=== PATIENT | female | born 1995 | race Caucasian/White ===

== ENCOUNTER 2017-05-09 10:40 | Emergency (ER) | payer OTHER ==
[~2017-05-09] VITALS: Ht 170.2 cm; Wt 62.0 kg
[2017-05-09 10:41] VITALS: BP 128/62; PULSE 82; RESP 16; TEMP 97.7; O2SAT 100
[2017-05-09] MEDS ORDERED: BACT800T5 PO (11:43)
[2017-05-09] MEDS ORDERED: IBUPROFEN 800 MG TAB PO ONE (11:45)
--- NOTE | 2017-05-09 11:45 | PD ---
HPI . Pilonidal cyst Chief Complaint: Lump, Cyst, Hernia Time Seen by Provider: 11:34 Travel History International Travel<30 days: No Contact w/Intl Traveler<30days: No Traveled to known affect area: No History of Present Illness HPI 21 year old female presents to the emergency department for evaluation of pilonidal cyst x 4 days. Patient has a history of pilonidal cysts. She denies any other history and doesn't take any daily medications. Patient denies any chest pain, shortness of breath, abdominal pain, nausea, vomiting, diarrhea, fever, chills or malaise. PFSH Past Medical History Medical History: Denies Significant Hx ?: Not LMP: 05/09/17 Past Surgical History Surgical History: No Previous Surgery Social History Alcohol Use: No Tobacco Use: No Substance Use: No Allergies-Medications (Allergen,Severity, Reaction): Coded Allergies: No Known Allergies (Unverified , 05/09/17) Reported Meds & Prescriptions Reported Meds & Active Scripts Active Bactrim DS (Sulfamethoxazole-Trimethoprim) 800-160 Mg Tab 1 Tab PO BID 10 Days Reported Ortho Tri-Cyclen (Norgestimate-Ethinyl Estradiol) 0.18/0.215/0.25 mg-35 Mcg Tab 1 Tab PO DAILY Review of Systems Except as stated in HPI: all other systems reviewed are Neg Physical Exam Narrative GENERAL: Well-nourished, well-developed 21 year old white female patient in no acute distress. Nontoxic appearing. SKIN: Small 2cm area of induration with mild erythema noted at the base of the sacrum. HEAD: Normocephalic. Atraumatic. EYES: No scleral icterus. No injection or drainage. NECK: Supple, trachea midline. No JVD or lymphadenopathy. CARDIOVASCULAR: Regular rate and rhythm without murmurs, gallops, or rubs. RESPIRATORY: Breath sounds equal bilaterally. No accessory muscle use. GASTROINTESTINAL: Abdomen soft, non-tender, nondistended. MUSCULOSKELETAL: No cyanosis, or edema. BACK: Nontender without obvious deformity. No CVA tenderness. Data Data Last Documented VS Vital Signs Date Time Temp Pulse Resp B/P (MAP) Pulse Ox O2 Delivery O2 Flow Rate FiO2 05/09/17 12:13 05/09/17 10:41 97.7 82 16 100 Orders Orders Ibuprofen (Motrin) (05/09/17 11:45) Ed Discharge Order (05/09/17 11:45) [facility] Medical Decision Making Medical Screen Exam Complete: Yes Emergency Medical Condition: Yes Differential Diagnosis Differential diagnosis includes but not limited to Pilonidal cyst, abscess, cellulitis Narrative Course 21-year-old female presents emergency department for evaluation of pilonidal cyst 4 days. Patient denies any fever, chills, malaise. Patient has a history of pilonidal cysts. There is a small area of induration proximally 2 cm with mild erythema noted at the base of the sacrum. There is no area of fluctuation that can be drained at this time. Patient discharged home with instructions to apply warm moist compresses to help facilitate bringing the cyst to a head, prescription for Bactrim. Diagnosis Primary Impression: Pilonidal cyst Referrals: Primary Care Physician Patient Instructions: General Instructions, Pilonidal Cyst (ED) Additional Instructions: Please return to emergency department if your symptoms return or worsen. Follow up with your primary care provider. Take Bactrim as prescribed. [facility]rim [facility] free at [facility] Take ibuprofen or Tylenol as needed for pain Warm moist heat will help bring the abscess to head. You can try to use warm compresses to the area to see if a head develops. If it does, you can come back to the emergency department to have it drained. Med/Other Pt SpecificInfo: Prescription(s) given Scripts Sulfamethoxazole-Trimethoprim (Bactrim DS) 800-160 Mg Tab 1 TAB PO BID for Infection for 10 Days, #20 TAB 0 Refills Prov: AlmaArnolKellysally HELLER 05/09/17 Disposition: 01 DISCHARGE HOME Condition: Stable AlmaKelly May 09, 2017 11:45
[2017-05-09] MEDS ORDERED: ORTHTAB4 PO (11:49)
== END 2017-05-09 12:13 | disposition home or self-care (01) ==
LOC: NEPD 10:40
DX: L05.91 Pilonidal cyst without abscess (principal)
CPT/HCPCS: 99283

== ENCOUNTER 2017-05-25 03:30 | Emergency (ER) | payer OTHER ==
[~2017-05-25] VITALS: Ht 170.2 cm; Wt 60.0 kg
[~2017-05-25 03:30] MED LIST: BACT800T5 PO; ORTHTAB4 PO
[2017-05-25 03:33] VITALS: BP 126/64; PULSE 95; RESP 16; TEMP 97.5; O2SAT 99
[2017-05-25] MEDS ORDERED: DICL75TA PO (04:01)
[2017-05-25] MEDS ORDERED: BACT800T5 PO (04:01)
--- NOTE | 2017-05-25 04:04 | PD ---
HPI Chief Complaint: Back/ Neck Pain or Injury Time Seen by Provider: 03:39 Travel History International Travel<30 days: No Contact w/Intl Traveler<30days: No Traveled to known affect area: No History of Present Illness HPI 21-year-old white female presents to emergency department complains of pain in her tailbone from a pilonidal cyst. She had been on antibiotics earlier last month. She has not followed up with a surgeon for definitive care. She returns due to increasing pain again. She denies any fever or chills. She states that she has been squeezing the area with good results. She denies any nausea vomiting. No abdominal pain or urinary symptoms. No alleviating symptoms. PFSH Past Medical History Narrative Medical Pilonidal cyst ?: Not Past Surgical History Surgical History: No Previous Surgery Social History Alcohol Use: No Tobacco Use: No Substance Use: No Allergies-Medications (Allergen,Severity, Reaction): Coded Allergies: No Known Allergies (Unverified , 05/25/17) Reported Meds & Prescriptions Reported Meds & Active Scripts Active Diclofenac Sodium DR (Diclofenac Sodium) 75 Mg Tabdr 75 Mg PO BID Bactrim DS (Sulfamethoxazole-Trimethoprim) 800-160 Mg Tab 1 Tab PO BID Bactrim DS (Sulfamethoxazole-Trimethoprim) 800-160 Mg Tab 1 Tab PO BID 10 Days Reported Ortho Tri-Cyclen (Norgestimate-Ethinyl Estradiol) 0.18/0.215/0.25 mg-35 Mcg Tab 1 Tab PO DAILY Review of Systems Except as stated in HPI: all other systems reviewed are Neg Physical Exam Narrative GENERAL: This is a well-nourished, well-developed patient, in no apparent distress. The patient was examined with Miss foot present SKIN: Patient has a pilonidal cyst. It isn't indurated, mildly red and tender but no fluctuance or pointing., ecchymoses or lesions. Warm and dry. HEAD: Atraumatic. Normocephalic. EYES: PERRL, EOMI, no discharge or injection. No scleral icterus. EARS: Clear NOSE: Nasal turbinates appear normal. THROAT: Mucosa pink and moist. Airway patent. NECK: Trachea midline. supple, moves head freely. LUNGS: Clear to auscultation. CV: Regular in rhythm. ABDOMEN: Soft nontender. EXT: No clubbing cyanosis or edema. Data Data Last Documented VS Vital Signs Date Time Temp Pulse Resp B/P (MAP) Pulse Ox O2 Delivery O2 Flow Rate FiO2 05/25/17 03:33 97.5 95 16 126/64 (84) 99 Room Air MDM Medical Decision Making Medical Screen Exam Complete: Yes Emergency Medical Condition: Yes Medical Record Reviewed: Yes Differential Diagnosis MDM: High Differential diagnoses: Abscess, folliculitis, cellulitis, lymphangitis, abrasion, contact dermatitis, pilonidal cyst Narrative Course Pilonidal cyst Diagnosis Primary Impression: Pilonidal cyst Patient Instructions: General Instructions Additional Instructions: Rest. Elevation. Sitz baths Bactrim DS and doxycycline. Follow-up with a colorectal surgeon in 1 week. Follow-up with a primary care doctor in one week. Return to the ER for any problems. Med/Other Pt SpecificInfo: Prescription(s) given Scripts Diclofenac Sodium DR (Diclofenac Sodium DR) 75 Mg Tabdr 75 MG PO BID, #20 TAB 0 Refills Prov: Aditi Nascimento MD 05/25/17 Sulfamethoxazole-Trimethoprim (Bactrim DS) 800-160 Mg Tab 1 TAB PO BID for Infection, #20 TAB 0 Refills Prov: Aditi Nascimento MD 05/25/17 Disposition: 01 DISCHARGE HOME Condition: Stable Nathanael Erwni May 25, 2017 04:04
== END 2017-05-25 04:10 | disposition home or self-care (01) ==
LOC: NEPD 03:30
DX: L05.91 Pilonidal cyst without abscess (principal)
CPT/HCPCS: 99284